=== PATIENT | male | born 1985 | race Caucasian/White ===

== ENCOUNTER 2023-12-24 21:47 | Outpatient (CLI) | payer SELFPAY ==
--- NOTE | 2023-12-24 14:00 | DI.RAD_ITS ---
Exam(s) XR KNEE LT 3V AP,LAT,ANNIE EXAM: XR KNEE LT 3V AP,LAT,ANNIE CLINICAL HISTORY: Pain in lt knee, M25.562, evaluate pathology. TECHNIQUE: 2D digital imaging was performed. Three views. COMPARISON: No exams were available for comparison FINDINGS: BONES: No acute fracture is present. No bony destructive lesion is seen. JOINTS: The knee is normally aligned. No joint effusion is seen. SOFT TISSUE: Normal. IMPRESSION: Normal radiographs of the left knee. DATA REPOSITORY: RADIATION DOSE DELIVERED:
== END 2023-12-24 22:07 ==
LOC: DI 12-26 21:47
PROVIDERS: Visit Provider Nurse Practitioner Family
DX: M25.562 Pain in left knee (principal)
CPT/HCPCS: 73562